=== PATIENT | male | born 1950 | race Two or more races ===

== ENCOUNTER 2017-12-09 08:40 | Outpatient (CLI) | payer OTHER ==
[~2017-12-09 08:40] MED LIST: AMITRIPTYLINE 75 MG; CATAFLAM50 MG PO; CLONAZEPAM1 MG PO; ELAVIL; ENALAPRIL MALEA20 MG PO; FLEXERIL10 MG PO; INDOCIN SR75 MG PO; LASIX20 MG PO; LIPITOR20 MG PO; NAPROXEN500 MG PO; PANADOL EXTRA500 MG PO; PERCOCET 5/3251 TAB PO; TENORMIN25 MG PO; TUMS CALCI300 MG( 75 PO
== END 2017-12-09 08:46 | disposition home or self-care (01) ==
LOC: NUCLEAR 08:40
DX: I50.32 Chronic diastolic (congestive) heart failure (principal); I34.0 Nonrheumatic mitral (valve) insufficiency; I27.21 Secondary pulmonary arterial hypertension